=== PATIENT | female | born 1970 | race Caucasian/White ===

== ENCOUNTER 2023-12-19 12:33 | Emergency (ER) | payer OTHER ==
[~2023-12-19] VITALS: Ht 157.5 cm; Wt 131.5 kg
[2023-12-19 12:33] VITALS: BP_SYST 174; PULSE 71; RESP 20; TEMP 96.8; O2SAT 95
[2023-12-19] MEDS ORDERED: AUG875 PO (13:57)
[2023-12-19] MEDS ORDERED: BENZ100C92 PO (13:57)
[2023-12-19] MEDS ORDERED: PRED20TA PO (13:57)
[2023-12-19 14:51] VITALS: BP_SYST 160; PULSE 71; RESP 16; TEMP 98.4; O2SAT 95
== END 2023-12-19 14:05 | disposition home or self-care (01) ==
LOC: SED 12:33
DX: J18.9 Pneumonia, unspecified organism (principal); I10 Essential (primary) hypertension; J45.909 Unspecified asthma, uncomplicated; Z79.899 Other long term (current) drug therapy
CPT/HCPCS: 71045; 99283